=== PATIENT | male | born 1955 | race Caucasian/White ===

== ENCOUNTER 2018-10-18 20:21 | Observation (INO) ==
--- NOTE | 2018-10-18 20:34 | Emergency Department Note ---
Disposition Clinical Impression: Unstable angina Disposition: Admitted As Inpatient Referrals: Ronny Boyer DO [Non-Partnered Physician] - Forms: ED Satisfaction Letter Time of Disposition: 22:40 General Adult HPI - General Stated complaint: Chest Pain Time Seen by Provider: 10/18/18 20:27 Source: patient, family Mode of arrival: private vehicle Limitations: no limitations Nursing Notes Reviewed: Yes Vital Signs Reviewed: Yes - History of Present Illness HPI Narrative: Patient is a 62-year-old male with past medical history including coronary artery disease and MD status post 2 stent placements on aspirin 325 mg, hypertension, hyperlipidemia, asthma, presenting with a chief complaint of chest pain. Patient states he has been having intermittent episodes of left-sided chest pain with exertion and associated with shortness of breath and nausea. The patient states he went to [facility] and had an EKG. He was sent to cardiology, Dr. Post. At that time, he wanted the patient to call or to the emergency department as his blood pressure and heart rate were low. The patient refused. He is scheduled for a coronary catheterization on October 21. The patient states since last night, he is having more frequent episodes of chest pain. He states today since noon, he was walking and exerting himself outside when he developed left-sided chest pain which she describes as pressure and burning sensation that intermittently radiates down his left arm and associated with shortness breath and nausea but no vomiting. Denies abdominal pain, lightheadedness or dizziness. He states usually the chest pain resolves with rest however did not resolve. He states he took 2 nitroglycerin before coming in with some improvement with chest pain however he still has it. - Related Data Home Medications Medication Instructions Recorded Confirmed Aspirin 325 mg PO DAILY 10/18/18 10/18/18 Budesonide/Formoterol 160/4.5 1 puff IH BID 10/18/18 10/18/18 [Symbicort 160/4.5] Fluticasone Propionate Nasal 2 spray IN DAILY PRN 10/18/18 10/18/18 [Flonase] Metoprolol [Lopressor] 50 mg PO BID 10/18/18 10/18/18 Quinapril HCl [Accupril] 5 mg PO DAILY 10/18/18 10/18/18 Simvastatin [Zocor] 40 mg PO HS 10/18/18 10/18/18 Allergies Allergy/AdvReac Type Severity Reaction Status Date / Time No Known Allergies Allergy Verified 10/18/18 21:02 All systems ED: reviewed and negative except as stated. Review of Systems: As Per HPI Constitutional: Denies: fever, chills Cardiovascular: Reports: chest pain. Denies: palpitations Respiratory: Reports: dyspnea. Denies: cough Gastrointestinal: Reports: nausea. Denies: abdominal pain, vomiting, diarrhea Neurological: Denies: weakness, numbness Past Medical History - Past Medical History Attestation: Yes The following information was validated with the patient. Source: patient Medical history: Reports: asthma, coronary artery disease, hyperlipidemia, hypertension, myocardial infarction Surgical history: Reports: angioplasty/stent, cholecystectomy Psychiatric history: Reports: no psych history - Social History Smoking Status: Former smoker Smokeless Tobacco Status: No Alcohol use: Reports: none Drug use: Reports: none Physical Exam - General Limitations: no limitations General appearance: alert, in no apparent distress - Head Head exam: atraumatic, normocephalic - Eye Eye exam: Present: normal appearance, EOMI - ENT ENT exam: normal exam, normal oropharynx - Neck Neck exam: Present: normal inspection, trachea midline - Chest Chest inspection: Present: normal inspection, symmetric chest wall rise - Respiratory Respiratory exam: Present: normal lung sounds bilaterally. Absent: respiratory distress, wheezes - Cardiovascular Cardiovascular exam: Present: regular rate, normal rhythm, normal heart sounds, other (Bilateral radial pulses are equal.) - Abdominal Exam Abdominal exam: Present: soft, Non-Tender. Absent: distention - Extremities Exam Extremities exam: Present: normal capillary refill. Absent: pedal edema, calf tenderness - Neurological Exam Neurological exam: Present: alert, oriented X3 - Psychiatric Psychiatric exam: Present: normal affect, normal mood - Skin Skin exam: Present: warm, dry. Absent: diaphoresis, pallor Course Vital Signs Temperature 99 F 10/18/18 20:37 Pulse Rate 67 10/18/18 20:37 Respiratory Rate 14 10/18/18 20:37 Blood Pressure 123/81 10/18/18 20:37 O2 Sat by Pulse Oximetry 96 10/18/18 20:37 Temperature 99 F 10/18/18 20:37 Pulse Rate 68 10/18/18 20:58 Respiratory Rate 12 10/18/18 20:58 Blood Pressure 109/69 10/18/18 20:58 O2 Sat by Pulse Oximetry 97 10/18/18 20:58 Oxygen Delivery Oxygen Delivery Nasal Cannula Medical Decision Making - [facility] Narrative Medical decision making narrative: Patient has unstable angina. He is scheduled for a coronary catheterization on October [address] Post. He is presenting with constant chest pain that does not resolve with rest and worsens with exertion since noon. He states it did improve with 2 nitroglycerin. He still has some chest pain at this time but it is not as severe. EKG was obtained and shows no acute ischemic changes. We w ill obtain cardiac workup. Anticipate admission. He has already had a 325 mg aspirin today. We will try another nitroglycerin trial. 21:35 Labs reviewed. Troponin negative. Cardiology paged to discuss heparin and brilinta. Lipase is mildly elevated but he has no abdominal pain or vomiting, no history of pancreatitis. 21;40 Discussed with Cardiology, Dr. Eun Prater. Start heparin if we believe this is unstable angina. Do not need to do any brilinta loading. Hospitalist paged for admission. patient re-evaluated and has no sharp chest pains. States it is improved. Complains of mild left sided pressure. 22:[address] Akers,who accepts admission - Medical Records Medical records reviewed: Yes I reviewed the patient's medical records. - Lab Data Lab results reviewed: Yes I reviewed the patient's lab results. Result diagrams: 10/18/18 20:36 10/18/18 20:36 Lab Results 10/18/18 10/18/18 10/18/18 Range/Units 20:36 20:36 20:36 WBC 5.5 (4.3-11.1) K/mcL RBC 4.23 (4.19-5.50) M/mcL Hgb 13.5 (12.9-16.9) g/dL Hct 40.0 (37.5-50.1) % MCV 94.6 (83.0-100.0) fL MCH 31.9 (28.0-33.3) pg MCHC 33.8 (31.6-35.5) g/dL RDW 14.2 (11.5-14.5) % Plt Count 185 (140-400) K/mcL MPV 11.0 (9.4-12.4) fL Immature Gran % 0.2 (0-4) % Seg Neutrophils % 54.0 % Lymphocytes % 32.8 % Monocytes % 7.8 % Eosinophils % 4.7 % Basophils % 0.5 % Neutrophils # 3.0 (1.6-8.9) K/mcL Lymphocytes # 1.8 (0.6-4.6) K/mcL Monocytes # 0.4 (0.0-1.3) K/mcL Eosinophils # 0.3 (0.0-0.6) K/mcL Basophils # 0.0 (0.0-0.2) K/mcL PT 12.1 (9.4-12.1) Seconds INR 1.1 APTT 33.0 (26.0-36.0) Seconds Heparin Anti-Xa, Unfract (0.30-0.70) IU/mL Sodium (136-145) mEq/L Potassium (3.5-5.1) mEq/L Chloride (98-107) mEq/L Carbon Dioxide (23-29) mEq/L BUN (8-23) mg/dL Creatinine (0.70-1.30) mg/dL Est GFR ( Amer) (> 60) Est GFR (Non-Af Amer) (> 60) BUN/Creatinine Ratio (6-26) Glucose (70-105) mg/dL Calculated Osmolality (280-300) Calcium (8.6-10.3) mg/dL Total Bilirubin (0.3-1.0) mg/dL Direct Bilirubin (0.0-0.2) mg/dL Indirect Bilirubin (0.0-1.2) mg/dL AST (13-39) Units/L ALT (7-52) Units/L Alkaline Phosphatase (34-104) Units/L Troponin I (< 0.04) ng/mL B-Natriuretic Peptide 20 (Less than 100) pg/mL Serum Total Protein (6.4-8.9) g/dL Albumin (3.5-5.7) g/dL Globulin (2.4-3.5) g/dL Albumin/Globulin Ratio (1.1-2.2) Lipase (11-82) Units/L 10/18/18 10/18/18 Range/Units 20:36 22:01 WBC (4.3-11.1) K/mcL RBC (4.19-5.50) M/mcL Hgb (12.9-16.9) g/dL Hct (37.5-50.1) % MCV (83.0-100.0) fL MCH (28.0-33.3) pg MCHC (31.6-35.5) g/dL RDW (11.5-14.5) % Plt Count (140-400) K/mcL MPV (9.4-12.4) fL Immature Gran % (0-4) % Seg Neutrophils % % Lymphocytes % % Monocytes % % Eosinophils % % Basophils % % Neutrophils # (1.6-8.9) K/mcL Lymphocytes # (0.6-4.6) K/mcL Monocytes # (0.0-1.3) K/mcL Eosinophils # (0.0-0.6) K/mcL Basophils # (0.0-0.2) K/mcL PT (9.4-12.1) Seconds INR APTT (26.0-36.0) Seconds Heparin Anti-Xa, Unfract 0.01 L (0.30-0.70) IU/mL Sodium 141 (136-145) mEq/L Potassium 3.8 (3.5-5.1) mEq/L Chloride 106 (98-107) mEq/L Carbon Dioxide 24 (23-29) mEq/L BUN 24 H (8-23) mg/dL Creatinine 0.88 (0.70-1.30) mg/dL Est GFR ( Amer) > 60 (> 60) Est GFR (Non-Af Amer) > 60 (> 60) BUN/Creatinine Ratio 27 H (6-26) Glucose 241 H (70-105) mg/dL Calculated Osmolality 304 H (280-300) Calcium 9.0 (8.6-10.3) mg/dL Total Bilirubin 1.2 H (0.3-1.0) mg/dL Direct Bilirubin 0.2 (0.0-0.2) mg/dL Indirect Bilirubin 1.0 (0.0-1.2) mg/dL AST 18 (13-39) Units/L ALT 16 (7-52) Units/L Alkaline Phosphatase 61 (34-104) Units/L Troponin I < 0.03 (< 0.04) ng/mL B-Natriuretic Peptide (Less than 100) pg/mL Serum Total Protein 6.3 L (6.4-8.9) g/dL Albumin 4.2 (3.5-5.7) g/dL Globulin 2.1 L (2.4-3.5) g/dL Albumin/Globulin Ratio 2.0 (1.1-2.2) Lipase 88 H (11-82) Units/L - Radiology Data Radiology results reviewed: Yes I reviewed the patient's radiology results. Chest X-Ray 10/18/18 20:29 IMPRESSION: No acute cardiopulmonary disease. D/ / Chucho Parry MD / Chucho Parry MD Interpreting Provider: Chucho Parry MD - EKG Data EKG #1 EKG attestation: Yes I reviewed and interpreted this EKG. EKG results narrative: EKG obtained at 2024 shows sinus rhythm with heart rate 64, OR interval 177, QRS duration 117, QTC 432, nonspecific intraventricular conduction delay, no ST elevation, no ST depression
[2018-10-18] MEDS: Nitroglycerin 0.4 MG TAB.SUBL SL PRN ×2 (20:54→21:00)
[2018-10-18 21:00] LABS: Basophils % 0.5 %; Eosinophils # 0.3 K/mcL (0.0-0.6); Eosinophils % 4.7 %; Hemoglobin 13.5 g/dL (12.9-16.9); Immature Granulocytes % 0.2 % (0-4); Lymphocytes # 1.8 K/mcL (0.6-4.6); Lymphocytes % 32.8 %; Mean Corpuscular HGB Conc 33.8 g/dL (31.6-35.5); Mean Corpuscular Hemoglobin 31.9 pg (28.0-33.3); Mean Corpuscular Volume 94.6 fL (83.0-100.0); Monocytes # 0.4 K/mcL (0.0-1.3); Monocytes % 7.8 %; Platelet Count 185 K/mcL (140-400); Red Blood Count 4.23 M/mcL (4.19-5.50); Red Cell Distribution Width 14.2 % (11.5-14.5); White Blood Count 5.5 K/mcL (4.3-11.1)
[2018-10-18 21:07] LABS: INR 1.1; Prothrombin Time 12.1 Seconds (9.4-12.1)
[2018-10-18 21:25] LABS: Alanine Aminotransferase 16 Units/L (7-52); Albumin 4.2 g/dL (3.5-5.7); Alkaline Phosphatase 61 Units/L (34-104); Aspartate Amino Transferase 18 Units/L (13-39); BUN/Creatinine Ratio 27 (6-26); Bilirubin,Direct 0.2 mg/dL (0.0-0.2); Bilirubin,Total 1.2 mg/dL (0.3-1.0); Blood Urea Nitrogen 24 mg/dL (8-23); Carbon Dioxide 24 mEq/L (23-29); Chloride 106 mEq/L (98-107); Globulin 2.1 g/dL (2.4-3.5); Glucose 241 mg/dL (70-105); Lipase 88 Units/L (11-82); Osmolality,Calculated 304 (280-300); Potassium 3.8 mEq/L (3.5-5.1); Sodium 141 mEq/L (136-145); Total Protein 6.3 g/dL (6.4-8.9); Troponin I < 0.03 ng/mL (< 0.04); eGFR For African Americans > 60 (> 60); eGFR For Non-African Americans > 60 (> 60)
[2018-10-18] MEDS ORDERED: *HR* Heparin 5,000 UNIT/ML VIAL IVP PRN ×2 (21:52)
[2018-10-18] MEDS ORDERED: *HR* Heparin 5,000 UNIT/ML VIAL IVP ONE (21:52)
--- NOTE | 2018-10-18 22:14 | Emergency Department Note ---
Disposition Clinical Impression: Unstable angina Disposition: Admitted As Inpatient Condition: Good Referrals: Ronny Boyer DO [Primary Care Provider] - Forms: ED Satisfaction Letter Time of Disposition: 22:14 General Adult HPI - General Chief complaint: ED Chest Pain Stated complaint: Chest Pain Time Seen by Provider: 10/18/18 20:27 Source: patient, family Mode of arrival: private vehicle Limitations: no limitations - History of Present Illness Pain Scale: 3 - Related Data Home Medications Medication Instructions Recorded Confirmed Aspirin 325 mg PO DAILY 10/18/18 10/18/18 Budesonide/Formoterol 160/4.5 1 puff IH BID 10/18/18 10/18/18 [Symbicort 160/4.5] Fluticasone Propionate Nasal 2 spray IN DAILY PRN 10/18/18 10/18/18 [Flonase] Metoprolol [Lopressor] 50 mg PO BID 10/18/18 10/18/18 Quinapril HCl [Accupril] 5 mg PO DAILY 10/18/18 10/18/18 Simvastatin [Zocor] 40 mg PO HS 10/18/18 10/18/18 Allergies Allergy/AdvReac Type Severity Reaction Status Date / Time No Known Allergies Allergy Verified 10/18/18 21:02 Constitutional: Denies: fever, chills Cardiovascular: Reports: chest pain. Denies: palpitations Respiratory: Reports: dyspnea. Denies: cough Gastrointestinal: Reports: nausea. Denies: abdominal pain, vomiting, diarrhea Neurological: Denies: weakness, numbness Past Medical History - Past Medical History Medical history: Reports: asthma, coronary artery disease, hyperlipidemia, hypertension, myocardial infarction Surgical history: Reports: angioplasty/stent, cholecystectomy Psychiatric history: Reports: no psych history - Social History Smoking Status: Former smoker Smokeless Tobacco Status: No Alcohol use: Reports: none Drug use: Reports: none Physical Exam - General Limitations: no limitations General appearance: alert, in no apparent distress Course Vital Signs Temperature 99 F 10/18/18 20:37 Pulse Rate 67 10/18/18 20:37 Respiratory Rate 14 10/18/18 20:37 Blood Pressure 123/81 10/18/18 20:37 O2 Sat by Pulse Oximetry 96 10/18/18 20:37 Temperature 99 F 10/18/18 20:37 Pulse Rate 68 10/18/18 20:58 Respiratory Rate 12 10/18/18 20:58 Blood Pressure 109/69 10/18/18 20:58 O2 Sat by Pulse Oximetry 97 10/18/18 20:58 Oxygen Delivery Oxygen Delivery Nasal Cannula Medical Decision Making - Lab Data Result diagrams: 10/18/18 20:36 10/18/18 20:36 Lab Results 10/18/18 10/18/18 10/18/18 Range/Units 20:36 20:36 20:36 WBC 5.5 (4.3-11.1) K/mcL RBC 4.23 (4.19-5.50) M/mcL Hgb 13.5 (12.9-16.9) g/dL Hct 40.0 (37.5-50.1) % MCV 94.6 (83.0-100.0) fL MCH 31.9 (28.0-33.3) pg MCHC 33.8 (31.6-35.5) g/dL RDW 14.2 (11.5-14.5) % Plt Count 185 (140-400) K/mcL MPV 11.0 (9.4-12.4) fL Immature Gran % 0.2 (0-4) % Seg Neutrophils % 54.0 % Lymphocytes % 32.8 % Monocytes % 7.8 % Eosinophils % 4.7 % Basophils % 0.5 % Neutrophils # 3.0 (1.6-8.9) K/mcL Lymphocytes # 1.8 (0.6-4.6) K/mcL Monocytes # 0.4 (0.0-1.3) K/mcL Eosinophils # 0.3 (0.0-0.6) K/mcL Basophils # 0.0 (0.0-0.2) K/mcL PT 12.1 (9.4-12.1) Seconds INR 1.1 APTT 33.0 (26.0-36.0) Seconds Sodium (136-145) mEq/L Potassium (3.5-5.1) mEq/L Chloride (98-107) mEq/L Carbon Dioxide (23-29) mEq/L BUN (8-23) mg/dL Creatinine (0.70-1.30) mg/dL Est GFR ( Amer) (> 60) Est GFR (Non-Af Amer) (> 60) BUN/Creatinine Ratio (6-26) Glucose (70-105) mg/dL Calculated Osmolality (280-300) Calcium (8.6-10.3) mg/dL Total Bilirubin (0.3-1.0) mg/dL Direct Bilirubin (0.0-0.2) mg/dL Indirect Bilirubin (0.0-1.2) mg/dL AST (13-39) Units/L ALT (7-52) Units/L Alkaline Phosphatase (34-104) Units/L Troponin I (< 0.04) ng/mL B-Natriuretic Peptide 20 (Less than 100) pg/mL Serum Total Protein (6.4-8.9) g/dL Albumin (3.5-5.7) g/dL Globulin (2.4-3.5) g/dL Albumin/Globulin Ratio (1.1-2.2) Lipase (11-82) Units/L 10/18/18 Range/Units 20:36 WBC (4.3-11.1) K/mcL RBC (4.19-5.50) M/mcL Hgb (12.9-16.9) g/dL Hct (37.5-50.1) % MCV (83.0-100.0) fL MCH (28.0-33.3) pg MCHC (31.6-35.5) g/dL RDW (11.5-14.5) % Plt Count (140-400) K/mcL MPV (9.4-12.4) fL Immature Gran % (0-4) % Seg Neutrophils % % Lymphocytes % % Monocytes % % Eosinophils % % Basophils % % Neutrophils # (1.6-8.9) K/mcL Lymphocytes # (0.6-4.6) K/mcL Monocytes # (0.0-1.3) K/mcL Eosinophils # (0.0-0.6) K/mcL Basophils # (0.0-0.2) K/mcL PT (9.4-12.1) Seconds INR APTT (26.0-36.0) Seconds Sodium 141 (136-145) mEq/L Potassium 3.8 (3.5-5.1) mEq/L Chloride 106 (98-107) mEq/L Carbon Dioxide 24 (23-29) mEq/L BUN 24 H (8-23) mg/dL Creatinine 0.88 (0.70-1.30) mg/dL Est GFR ( Amer) > 60 (> 60) Est GFR (Non-Af Amer) > 60 (> 60) BUN/Creatinine Ratio 27 H (6-26) Glucose 241 H (70-105) mg/dL Calculated Osmolality 304 H (280-300) Calcium 9.0 (8.6-10.3) mg/dL Total Bilirubin 1.2 H (0.3-1.0) mg/dL Direct Bilirubin 0.2 (0.0-0.2) mg/dL Indirect Bilirubin 1.0 (0.0-1.2) mg/dL AST 18 (13-39) Units/L ALT 16 (7-52) Units/L Alkaline Phosphatase 61 (34-104) Units/L Troponin I < 0.03 (< 0.04) ng/mL B-Natriuretic Peptide (Less than 100) pg/mL Serum Total Protein 6.3 L (6.4-8.9) g/dL Albumin 4.2 (3.5-5.7) g/dL Globulin 2.1 L (2.4-3.5) g/dL Albumin/Globulin Ratio 2.0 (1.1-2.2) Lipase 88 H (11-82) Units/L Attestation Statement - Attestation Attestation: I reviewed the residents documentation and agree with the residents assessment and plan of care. I have personally had face to face time with the patient. (Brief History, Brief Exam, and MDM) I personally supervised and was present for the jimenez/critical portions of the following procedures completed by the resident: EKG 62 year old male presents to the eD with complaints of chest pain and is scheduled to have LHC on saturday with dr. Post. He otherwise has a history of 2 cardiac stents in the past and is experiencing exertional dysone after doing some light house work [employer]. amirah also was at rest a few days ago and the chest pressure woke him from sleep. Lily has a nonspecific ST-T wave changes on EKG without any acute ischemic changes in addition to a negative troponin. We dicussed case with Dr. Eun Rivero who will see patient in consult for cards. Heparin started, chest pain free. Admit to medicine
--- NOTE | 2018-10-18 22:37 | Internal Med History&Physical ---
Date of Encounter: 10/18/18 Time of Encounter: 22:00 Internal Medicine - H&P: HPI Chief complaint: chest pain History of present illness: Mr. Ross is a 62 year old male with past medical history of asthma, coronary artery disease, hyperlipidemia, hypertension, myocardial infarction who resented to the ER with a complaint of intermittent left-sided chest pain, pressure like and character associated with nausea and vomiting without diaphoresis. The patient has extensive cardiac history status post stent placement and on aspirin. The patient was supposed to be scheduled for cardiac catheterization on October 21 however due to the increase of frequency of chest pain episode he decided to seek medical attention. The patient was evaluated by the ER staff and EKG revealed no significant ST-T wave changes cardiac enzymes including troponin were negative. Cardiology was consulted by the ER and they came to the conclusion that patient most likely with unstable angina they advise not to load the patient with brilinta and start patient on heparin drip and they will see the patient in consult the patient was admitted for further evaluation and management. Past Med Surg Social Fam HX - Past Medical History Medical history: asthma, coronary artery disease, hyperlipidemia, hypertension, myocardial infarction Additional medical history: heart stents x2 2009 Psychiatric history: no psych history - Past Surgical History Surgical History: angioplasty/stent, cholecystectomy - Social History Smoking Status: Former smoker Smokeless Tobacco Status: No Alcohol use: none Drug use: none - Family History Father Living Status: Cause of : cerebral hemorrhage Internal Medicine - H&P: Meds Aspirin 325 mg PO DAILY 10/18/18 [History] Budesonide/Formoterol 160/4.5 [Symbicort 160/4.5] 1 puff IH BID 10/18/18 [History] Fluticasone Propionate Nasal [Flonase] 2 spray IN DAILY PRN 10/18/18 [History] Quinapril HCl [Accupril] 5 mg PO DAILY 10/18/18 [History] Simvastatin [Zocor] 40 mg PO HS 10/18/18 [History] Isosorbide MONOnitrate (24 HR) [Imdur] 30 mg PO DAILY #30 tab.er.24h 10/20/18 [Rx] Metoprolol [Lopressor] 25 mg PO BID 30 Days #60 tablet 10/20/18 [Rx] Allergy/AdvReac Type Severity Reaction Status Date / Time No Known Allergies Allergy Verified 10/18/18 21:02 All Systems PM: A 10-system review of systems was performed and is negative for pertinent findings except as documented above in the HPI. - Constitutional Vitals: Temp Pulse Resp BP Pulse Ox 99 F 68 12 109/69 97 10/18/18 20:37 10/18/18 20:58 10/18/18 20:58 10/18/18 20:58 10/18/18 20:58 General appearance: Present: A&O X 3 Exam: ` - Head Head exam: Present: atraumatic, normocephalic - Neck Neck exam general surgery: Present: supple, trachea midline. Absent: lymphadenopathy - Respiratory Respiratory exam: Present: CTAB. Absent: accessory muscle use, rales, rhonchi, wheezes - Cardiovascular Cardiovascular exam: Present: RRR, +S1, +S2. Absent: diastolic murmur, gallop, rubs, systolic murmur - GI/Abdominal GI/Abdominal exam: Present: normal bowel sounds, soft, no peritoneal signs. Absent: distended, tenderness - Extremities Exam Extremities exam: Present: warm, radial pulses palpable and symmetrical. Absent: calf tenderness, cyanotic, pedal edema Internal Med - H&P Results - Labs CBC & Chem 7: 10/20/18 04:27 10/20/18 04:27 Labs: Short CBC 10/18/18 Range/Units 20:36 WBC 5.5 (4.3-11.1) K/mcL Hgb 13.5 (12.9-16.9) g/dL Hct 40.0 (37.5-50.1) % Plt Count 185 (140-400) K/mcL Neutrophils # 3.0 (1.6-8.9) K/mcL BMP 10/18/18 20:36 Sodium 141 Potassium 3.8 Chloride 106 Carbon Dioxide 24 BUN 24 H Creatinine 0.88 Glucose 241 H Calcium 9.0 Cardiac Enzymes 10/18/18 Range/Units 20:36 Troponin I < 0.03 (< 0.04) ng/mL Liver Function 10/18/18 Range/Units 20:36 Total Bilirubin 1.2 H (0.3-1.0) mg/dL Direct Bilirubin 0.2 (0.0-0.2) mg/dL AST 18 (13-39) Units/L ALT 16 (7-52) Units/L Alkaline Phosphatase 61 (34-104) Units/L Albumin 4.2 (3.5-5.7) g/dL - Impressions ITS Impressions Chest X-Ray 10/18/18 20:29 IMPRESSION: No acute cardiopulmonary disease. D/ / Chucho Parry MD / Chucho Parry MD Interpreting Provider: Chucho Parry MD - Assessment and Plan (1) Unstable angina Status: Acute Assessment and plan: The patient was supposed to be scheduled for cardiac catheterization on October 21 however due to the increase of frequency of chest pain episode he decided to seek medical attention. The patient was evaluated by the ER staff and EKG revealed no significant ST-T wave changes cardiac enzymes including t roponin were negative. Cardiology was consulted by the ER and they came to the conclusion that patient most likely with unstable angina they advise not to load the patient with brilinta and start patient on heparin drip and they will see the patient in consult. We will place the patient on telemetry, continue heparin drip, and tach cardiac enzymes. (2) Hypertension Status: Chronic Assessment and plan: We will continue home medication and adjust regimen as indicated Qualifiers: Hypertension type: essential hypertension Qualified Code(s): I10 - Essential (primary) hypertension (3) Hyperlipidemia Status: Chronic Assessment and plan: We will obtain FLP in Am Qualifiers: Hyperlipidemia type: unspecified Qualified Code(s): E78.5 - Hyperlipidemia, unspecified (4) Coronary artery disease Status: Chronic Assessment and plan: We will continue home medication, cardiology was consulted and they will see the patient in a.m. Qualifiers: Coronary Disease-Associated Artery/Lesion type: [place] artery [place] vs. transplanted heart: [place] heart Associated angina: with unstable angina Qualified Code(s): I25.110 - Atherosclerotic heart disease of [place] coronary artery with unstable angina pectoris - Time Spent With Patient Total time spent is greater than 50% in coordination of care (as documented) at patient's floor/unit and/or counseling patient:
[2018-10-18] MEDS: Heparin 25,000 UNIT/250 ML D5W 25,000 UNIT/250 ML IV.SOLN IVC SCH (22:44)
[2018-10-19] MEDS ORDERED: Naloxone 0.4 MG/ML INJ IVP PRN (00:31)
[2018-10-19] MEDS ORDERED: Ondansetron 4 MG/2 ML VIAL IVP PRN (00:31)
[2018-10-19 01:25] LABS: Basophils % 0.6 %; Eosinophils # 0.2 K/mcL (0.0-0.6); Eosinophils % 4.4 %; Hematocrit 38.4 % (37.5-50.1); Hemoglobin 12.4 g/dL (12.9-16.9); Immature Granulocytes % 0.2 % (0-4); Lymphocytes # 1.9 K/mcL (0.6-4.6); Lymphocytes % 38.4 %; Mean Corpuscular HGB Conc 32.3 g/dL (31.6-35.5); Mean Corpuscular Hemoglobin 31.2 pg (28.0-33.3); Mean Corpuscular Volume 96.5 fL (83.0-100.0); Mean Platelet Volume 10.9 fL (9.4-12.4); Monocytes # 0.5 K/mcL (0.0-1.3); Monocytes % 10.4 %; Neutrophils # 2.3 K/mcL (1.6-8.9); Platelet Count 149 K/mcL (140-400); Red Blood Count 3.98 M/mcL (4.19-5.50); Red Cell Distribution Width 14.3 % (11.5-14.5)
[2018-10-19 01:39] LABS: Alanine Aminotransferase 16 Units/L (7-52); Albumin 3.9 g/dL (3.5-5.7); Albumin/Globulin Ratio 1.8 (1.1-2.2); Alkaline Phosphatase 57 Units/L (34-104); Aspartate Amino Transferase 15 Units/L (13-39); BUN/Creatinine Ratio 26 (6-26); Bilirubin,Total 1.1 mg/dL (0.3-1.0); Blood Urea Nitrogen 22 mg/dL (8-23); Calcium 9.1 mg/dL (8.6-10.3); Carbon Dioxide 27 mEq/L (23-29); Chloride 110 mEq/L (98-107); Chol/HDL Ratio 3.8 (0-4.9); Cholesterol 118 mg/dL (< 200); Globulin 2.2 g/dL (2.4-3.5); Glucose 151 mg/dL (70-105); HDL Cholesterol 31 mg/dL (40-59); LDL Cholesterol,Calculated 67 mg/dL (0-99); Magnesium 2.1 mg/dL (1.6-2.6); Osmolality,Calculated 300 (280-300); Phosphorous 3.4 mg/dL (2.7-4.5); Potassium 4.3 mEq/L (3.5-5.1); Sodium 142 mEq/L (136-145); Total Protein 6.1 g/dL (6.4-8.9); Triglycerides 101 mg/dL (< 150); eGFR For African Americans > 60 (> 60); eGFR For Non-African Americans > 60 (> 60)
[2018-10-19 01:52] LABS: INR 1.1; Prothrombin Time 12.1 Seconds (9.4-12.1)
[2018-10-19 02:01] LABS: Activated Partial Thrombo Time 107.6 Seconds (26.0-36.0)
[2018-10-19] MEDS: Budesonide/Formoterol 160/4.5 1 PUFF INH IH SCH ×2 (08:01→20:37)
[2018-10-19] MEDS: Aspirin 325 MG TABLET PO SCH (08:53)
[2018-10-19] MEDS ORDERED: Nitroglycerin 25 MG/250 ML INFUS..BTL IVC SCH (09:30)
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
--- NOTE | 2018-10-19 12:44 | Electrocardiograph Report ---
[place] [id number] Test Date: 2018-10-18 Pat Name: Topher Ross Department: [id number] Room: 3B24 Gender: M Insurance Counselor: : 1955 Requested By: Erin Elam Order Number: [id number] Reading MD: Audra Prater Measurements Intervals [place] Rate: 64 P: 55 [place]: 177 QRS: -9 QRSD: 117 T: 63 QT: 418 QTc: 432 Interpretive Statements Sinus rhythm Nonspecific intraventricular conduction delay Low voltage, extremity and precordial leads Electronically Signed On 10-19-2018 12:42:44 EDT by Audra Prater
--- NOTE | 2018-10-19 14:50 | Event Note ---
Date of Encounter: 10/19/18 Time of Encounter: 14:48 Patient was seen and examined by hospitalist services earlier this morning. Patient continues to express intermittent chest pain particularly on exertion. Patient is currently on heparin drip and nitroglycerin drip will be added. Patient's been evaluated by cardiology and he will undergo LHC in the morning patient verbalizes understanding
[2018-10-19] MEDS ORDERED: 0.9 % Sodium Chloride 1,000 ML ONE (14:58)
[2018-10-19] MEDS ORDERED: 0.9 % Sodium Chloride 1,000 ML IVC SCH (15:00)
[2018-10-19] MEDS: Heparin 25,000 UNIT/250 ML D5W 25,000 UNIT/250 ML IV.SOLN IVC SCH (23:05)
[2018-10-20 05:09] LABS: Basophils % 0.6 %; Eosinophils # 0.3 K/mcL (0.0-0.6); Eosinophils % 5.4 %; Hematocrit 37.6 % (37.5-50.1); Hemoglobin 12.5 g/dL (12.9-16.9); Immature Granulocytes % 0.6 % (0-4); Lymphocytes # 1.7 K/mcL (0.6-4.6); Lymphocytes % 31.7 %; Mean Corpuscular HGB Conc 33.2 g/dL (31.6-35.5); Mean Corpuscular Hemoglobin 31.5 pg (28.0-33.3); Mean Corpuscular Volume 94.7 fL (83.0-100.0); Mean Platelet Volume 11.2 fL (9.4-12.4); Monocytes # 0.6 K/mcL (0.0-1.3); Monocytes % 11.3 %; Neutrophils # 2.6 K/mcL (1.6-8.9); Nucleated Red Blood Cells 0.4 /100 WBC (0); Platelet Count 157 K/mcL (140-400); Red Blood Count 3.97 M/mcL (4.19-5.50); Red Cell Distribution Width 14.1 % (11.5-14.5); Segmented Neutrophils % 50.4 %; White Blood Count 5.2 K/mcL (4.3-11.1)
[2018-10-20 05:31] LABS: BUN/Creatinine Ratio 25 (6-26); Blood Urea Nitrogen 22 mg/dL (8-23); Calcium 8.9 mg/dL (8.6-10.3); Carbon Dioxide 27 mEq/L (23-29); Chloride 105 mEq/L (98-107); Cholesterol 125 mg/dL (< 200); Glucose 125 mg/dL (70-105); HDL Cholesterol 31 mg/dL (40-59); LDL Cholesterol,Calculated 38 mg/dL (0-99); Osmolality,Calculated 297 (280-300); Sodium 141 mEq/L (136-145); Triglycerides 278 mg/dL (< 150); eGFR For African Americans > 60 (> 60); eGFR For Non-African Americans > 60 (> 60)
[2018-10-20] MEDS ORDERED: 0.9 % Sodium Chloride 1,000 ML IVC SCH (07:00)
[2018-10-20] MEDS: Budesonide/Formoterol 160/4.5 1 PUFF INH IH SCH (07:52)
[2018-10-20] MEDS: Aspirin 325 MG TABLET PO SCH (08:01)
[2018-10-20] MEDS ORDERED: *HR* FentaNYL (PF) 100 MCG/2 ML VIAL ONE (08:54)
[2018-10-20] MEDS ORDERED: *HR* Midazolam HCl 2 MG/2 ML VIAL ONE (08:54)
[2018-10-20] MEDS ORDERED: 0.9 % Sodium Chloride 1,000 ML ONE (08:54)
[2018-10-20] MEDS ORDERED: Nitroglycerin 1,000 MCG/10 ML VIAL IV ONE (08:55)
[2018-10-20] MEDS ORDERED: Heparin 1,000 UNITS/500 mL 500 ML ONE (08:55)
[2018-10-20] MEDS ORDERED: *HR* Heparin 10,000 UNIT/10 ML VIAL ONE (08:55)
[2018-10-20] MEDS ORDERED: Isovue-300 200 mL Infus..BTL ONE (08:56)
--- NOTE | 2018-10-20 09:42 | Pre-Sedation Evaluation ---
Pre-sedation evaluation - Pre-sedation checklist Date of procedure: 10/20/18 Procedure: C Recent Vitals: Last Vital Signs Temp 98.1 F 10/20/18 06:49 Pulse 61 10/20/18 06:49 Resp 16 10/20/18 07:53 BP 113/76 10/20/18 06:49 Pulse Ox 95 10/20/18 07:53 Previous reaction to sedatives/anesthetics: No Dietary Status: NPO after Midnight Dentition: dentures removed ASA Classification *see protocol: CLASS II-Mild systemic disease Cardiac Registry (Cardio Only) - Functional Capacity Functional Capacity: >=4 METS with symptoms - Clincal Frailty Scale Clinical Frailty Scale: Managing Well
[2018-10-20] MEDS ORDERED: Iopamidol 125 ML INFUS..BTL ONE (09:46)
--- NOTE | 2018-10-20 10:11 | Event Note ---
Date of Encounter: 10/20/18 Time of Encounter: 10:00 - Cardiology Event Note Prelim [facility] findings with Dr. Nair--non-obstructive CAD with patent stents. Will decrease BB due to c/o fatigue. Add imdur. Recommend outpatient sleep study to evaluate with JOSE. No further inpatient recommendations. Cardiology will sign-off.
--- NOTE | 2018-10-20 10:17 | Invasive Diagnostic Lab Proc ---
Name: Topher Ross Date of Study: 10/20/2018 Date: 1955 Ht: 66.1in Medical Record#: [id number] Age: 62 Wt: 211.64lb Gender: Male BSA: 2.05 Order #: [id number] BMI: 34.01 Physicians Procedure Physician: Balaji Nair MD Referring MD: Referring MD: Staff Name Position Time In Bertrand Cabral RN Monitor 09:29 AM Miquel Parekh RN [employer] Crew Leader 09:30 AM Audra Morin RT (R) Scrub 09:30 AM Indications Indication Worsening Angina Procedures Performed Procedure L HRT ARTERY/VENTRICLE ANGIO Pre-Procedure Checklist Informed consent is complete signed and on chart. H&P is on chart. ID band is on and ID verified with patient. Patient NPO for procedure The procedure was described for the patient and questions were answered. ECG is on chart. Plan of Care Patient will tolerate the procedure without complications. Adequate level of comfort will be maintained. Hemodynamics will remain stable Patient will recover from procedure without complications. Respiratory function will be maintained. Cardiac rhythm will remain stable. Patient temperature will be maintained. Patient and/or family have verbalized understanding of the procedure. Patient Education Chief Complaint/Reason for Test: Cardiac Cath Developmental Category: Adult (18-64 years) Developmentally Appropriate for Age: Yes Learning Barriers: None Education Needs: Procedure Education Method: Verbal Information Taught: Cardiac Cath Educational Evaluation: Able to repeat information Intravenous Access Time IV Size Location DC'd Fluid/Drip Rate Units RN 20g 1 /4" Patent On Arrival 0.9NaCl ml/hr Allergies No Known Allergies Vital Signs Time BP (mmHg) HR (bpm) O2 Sat. RR (bpm) LOC 09:41 AM 132 / 77 56 97 % 31 09:46 AM 130 / 65 57 98 % 13 09:51 AM 137 / 82 67 100 % 21 09:56 AM 127 / 77 68 99 % 12 Procedural Medications Time Medication Dose Units Method Given By 09:36 AM Oxygen 2 L/min nasal cannula Miquel Parekh RN 09:40 AM Versed 1 mg Intravenous Miquel Parekh RN 09:40 AM Fentanyl 50 mcg Intravenous Miuqel Parekh RN 09:46 AM Lidocaine 2% 20 ml Subcutaneous Balaji Nair MD 09:52 AM Nitroglycerin 150 mcg Intracoronary Balaji Nair MD ASA Classification: CLASS II- Mild systemic disease (i.e. well-controlled diabetes, hypertension, asthma, cigarette smoking) Jose Score Preprocedure Postprocedure Activity 2- Moves 4 extremities sustained head lift Activity 2- Moves 4 extremities sustained head lift Circulation 2- SBP +/= 20 points of pre-anesthetic level Circulation 2- SBP +/= 20 points of pre-anesthetic level Consciousness 2- Awake and alert oriented x 3 Consciousness 2- Awake and alert oriented x 3 O2 Saturation 2- Able to maintain O2 satruation of 92% on room air O2 Saturation 2- Able to maintain O2 satruation of 92% on room air Respiratory 2- Able to deep breathe and cough well Respiratory 2- Able to deep breathe and cough well Total Score 10 Total Score 10 Contrast Agent: Isovue Diagnostic Contrast: 60 ml Total Contrast: 60 ml Fluoro Dose: 24 mGy Procedure Log Time Note Enter By 09:29 AM Pt arrived to physical laboratory assistant 2 at 09:28 oparker 09:30 AM Bertrand Cabral RN Position: Monitor Time in: :29 oparker 09:30 AM Miquel Parekh RN Position: [employer] Crew Leader Time in: 09:30 oparker 09:30 AM Audra Morin (R) Position: Scrub Time in: 09:30 oparker 09:30 AM Patient charges- Angio tray pack, Navilyst 3mm J, Pulse Oximetry and ACIST tubing and transducer oparker 09:32 AM Time: 09:32 Patient comfortable and pain free: Yes oparker 09:33 AM CathStat 09:35 AM Physician arrived 09:35 oparker 09:35 AM Meet and delfina completed oparker 09:35 AM Sign in performed according to hospital policy. Informed consent was obtained. oparker 09:36 AM Recorded ECG: HR=66 Condition=Condition 1 09:36 AM Vitals capture started with the following parameters, Patient=Adult, Interval=5 min, Initial Iddkycao=042 mmHg, Deflation Rate=3 mmHg, Cuff placed on Right Arm 09:36 AM Procedure start 09:36 oparker 09:37 AM Time: 09:36 Oxygen on at 2 L/min per nasal cannula by Miquel Parekh RN oparker 09:38 AM Hair removed from procedure site in procedure lab using clippers. Bilateral groin prepped with Chloraprep by Miquel Parekh RN, then patient was draped. Skin intact. oparker 09:39 AM Vitals capture stopped. 09:40 AM Vitals capture started with the following parameters, Patient=Adult, Interval=5 min, Initial Zczqhvkh=719 mmHg, Deflation Rate=3 mmHg, Cuff placed on Right Arm 09:40 AM Time: 09:40 Versed 1 mg Intravenous Given by Miquel Parekh RN oparker 09:40 AM Time: 09:40 Fentanyl 50 mcg Intravenous Given by Miquel Parekh RN oparker 09:41 AM HR=56 bpm, OKHJ=796/77 mmhg, SpO2=97.0 %, Resp=31 B/min 09:42 AM Recorded ECG: HR=60 Condition=Condition 1 09:43 AM Time out was performed according to hospital policy. Conscious sedation and anesthesia was achieved (see medication log with in this report above) oparker 09:44 AM ASA Class CLASS II- Mild systemic disease (i.e. well-controlled diabetes, hypertension, asthma, cigarette smoking) oparker 09:45 AM Pressure channel 1 zeroed. 09:45 AM Pressure channel 1 zero failed. 09:46 AM Pressure channel 1 zeroed. 09:46 AM Time: 09:46 20 ml Lidocaine 2% to right groin Subcutaneous Given by Balaji Nair MD oparker 09:46 AM HR=57 bpm, NRIR=474/65 mmhg, SpO2=98.0 %, Resp=13 B/min 09:47 AM Time: 09:32 Patient comfortable and pain free: Yes oparker 09:47 AM Micro-Introducer Kit utilized for sheath placement oparker 09:48 AM Access obtained by percutaneous puncture. 6Fr 10cm Terumo [place] sheath placed in right Femoral artery. [id number] oparker 09:48 AM 0.035 145cm Navilyst 3mmJ wire [id number] oparker 09:48 AM Recorded Pressure: Ao, HR=64, Condition=Condition 1 (Aorta) Ao 127/77/99 09:48 AM 5Fr FR 4 catheter inserted over the wire DNC oparker 09:49 AM RCA angiography performed in multiple views. oparker 09:50 AM Catheter removed oparker 09:51 AM Recorded Pressure: Ao, HR=68, Condition=Condition 1 (Aorta) Ao 113/77/94 09:51 AM 5Fr FL 4 catheter inserted over the wire DNC oparker 09:51 AM HR=67 bpm, HUYE=344/82 mmhg, GvT1=080.0 %, Resp=21 B/min 09:52 AM Time: 09:52 Nitroglycerin 150 mcg Intracoronary Given by Balaji Nair MD oparker 09:52 AM Recorded Pressure: Ao, HR=73, Condition=Condition 1 (Aorta) Ao 95/67/81 09:53 AM Catheter removed oparker 09:53 AM 5Fr Pigtail catheter inserted over the wire DNC oparker 09:54 AM Recorded Pressure: LV, HR=70, Condition=Condition 1 (Left Ventricle) LV 111/11/13 09:54 AM Recorded Pressure: LV, Ao, HR=81, Condition=Condition 1 (Left Ventricle) LV 115/32/14, (Aorta) Ao 23/-20/2 09:55 AM Procedure completed at 09:55 10/20/2018 oparker 09:55 AM Did you address LUC flow and Dominance? YesCoronary Dominance: right oparker 09:56 AM Sign out completed: Radiation Dose 175.62 mGy, 24.3 Gy/cm2 Fluoro Time: 1.4 Isovue 370 - 200ml contrast 60 ml given by Balaji Nair MD. Complications: None. The patient was discharged out of the microbiology lab technician in stable condition. Sedation minutes 15. Cardiac Rehab Consult needed: No. Confirmed administered medications: Yes oparker 09:56 AM Isovue 370 - 200ml,1 Bottle(s) used. oparker 09:56 AM HR=68 bpm, XXTJ=239/77 mmhg, SpO2=99.0 %, Resp=12 B/min 09:56 AM Arterial sheath pulled, Mynx closure device used and was Successful [id number] S/N. oparker 09:56 AM Estimated Blood Loss: less than 20cc oparker 09:56 AM Post ECG NSR oparker 09:56 AM Post Blood Pressure 127/77 oparker 09:56 AM 09:56 Post Pulses Bilateral DP 1+ oparker 09:57 AM Information taught Cardiac Cath and Mynx oparker 09:57 AM Education needs Procedure, Plan of Care, and Disease Process oparker 09:57 AM Learning barriers :None oparker 09:57 AM Education Methods Verbal oparker 09:57 AM Education evaluation Able to repeat information oparker 10:02 AM Lesion found in Mid LAD. Pre Stenosis: 15 Pre LUC Flow: oparker 10:02 AM Mid/Distal Left Anterior Descending Coronary Artery and diagonal branches with 15% stenosis. If graft is supplying this area, 0 % stenosis oparker 10:03 AM Site status No bleeding/ No Hematoma - Rt Groin as reported by Audra Morin RT (R) at 10:03 oparker 10:03 AM Opsite applied oparker 10:06 AM Report given to Debra BLUNT Pt taken to 3B Room #24. 10:06 oparker 10:06 AM Patient out of room: 10:06 oparker 10:06 AM Family placed in consult room. oparker Complications Complication None Hemodynamics Pressures Site Systolic/A Wave Diastolic/V Wave Mean AO 127 77 99 AO 113 77 94 AO 95 67 81 LV 111 11 13 LV 115 32 14 AO 23 -20 2 Post Procedure Information Blood Pressure: 127/77 mmHg Rhythm: NSR Closure Device Time Device Success/Fail 10/20/2018 9:58:00 AM MynxGrip Successful Site Checks Time Location Status Staff Sheath In? Note 10:03 AM Rt Groin No bleeding/ No Hematoma Audra Morin RT (R) Pulses Time Site Pre-Procedure Post-Procedure Note Bilateral DP & PT 2+ Bilateral radial 2+ 9:56:00 AM Bilateral DP 1+ Updated by Bertrand Cabral RN on 10/20/2018 10:10:53 AM electronically signed on 10/20/2018 10:11:44 AM with status of Final
--- NOTE | 2018-10-20 10:50 | Discharge Summary ---
- NOTES TO OUTPATIENT PROVIDER Notes to Outpatient Provider: Presented with unstable angina was seen by cardiology and underwent cardiac catheter which did show nonobstructive CAD with patent stents-cardiology decreasing beta reinaldo and adding Imdur will benefit from outpatient sleep study to evaluate for JOSE Orders not resulted at time of discharge: Pending orders 10/19/18 04:00 Urinalysis reflex Microscopic [URIN] AM 0400 Date of Encounter: 10/20/18 Time of Encounter: 10:41 - Discharge Diagnosis (1) Unstable angina Priority: Primary Status: Acute (2) Hypertension Priority: Secondary Status: Chronic Qualifiers: Hypertension type: essential hypertension Qualified Code(s): I10 - Essential (primary) hypertension (3) Hyperlipidemia Priority: Secondary Status: Chronic Qualifiers: Hyperlipidemia type: unspecified Qualified Code(s): E78.5 - Hyperlipidemia, unspecified (4) Coronary artery disease Priority: Secondary Status: Chronic Qualifiers: Coronary Disease-Associated Artery/Lesion type: [place] artery [place] vs. transplanted heart: [place] heart Associated angina: with unstable angina Qualified Code(s): I25.110 - Atherosclerotic heart disease of [place] coronary artery with unstable angina pectoris (5) Myocardial infarction Priority: Secondary Status: Acute Qualifiers: Myocardial infarction type: unspecified Involved coronary artery: unspecified coronary artery Qualified Code(s): I21.9 - Acute myocardial infarction, unspecified Hospital course: Mr. Ross is a 62 year old male past medical history of CAD status post PCI with 2 stents in 2009 hypertension hyperlipidemia presented to [facility] with complaints of chest pain has been intermittent over the months he did have chest pain that woke him from sleep resolved. The pain continued Day describing it as burning radiating to his left shoulder with associated symptoms of shortness of breath and diaphoresis. He did take 2 nitroglycerin with some relief he presented to the ER for evaluation. Troponins were negative [address]-T wave abnormalities patient was placed on heparin drip as well as nitro drip to control chest pain. He was evaluated by cardiology and he underwent LHC which showed nonobstructive CAD with patent stents. Cardiology did decrease beta reinaldo due to complaints of fatigue and added Imdur. Recommending outpatient sleep study to evaluate for JOSE-advised patient to follow-up with primary care provider as well as cardiology as outpatient. Right femoral site without any bleeding or hematoma He is hemodynamically stable at this time is ready for discharge. - Time Spent with Patient Total time spent providing and/or coordinating discharge services: - Discharge Medications Prescriptions: New Isosorbide MONOnitrate (24 HR) [Imdur] 30 mg PO DAILY #30 tab.er.24h Metoprolol [Lopressor] 25 mg PO BID 30 Days #60 tablet Continued Fluticasone Propionate Nasal [Flonase] 2 spray IN DAILY PRN PRN Reason: Allergy Symptoms Simvastatin [Zocor] 40 mg PO HS Aspirin 325 mg PO DAILY Quinapril HCl [Accupril] 5 mg PO DAILY Budesonide/Formoterol 160/4.5 [Symbicort 160/4.5] 1 puff IH BID Discontinued Metoprolol [Lopressor] 50 mg PO BID Home Medications: Aspirin 325 mg PO DAILY 10/18/18 [History] Budesonide/Formoterol 160/4.5 [Symbicort 160/4.5] 1 puff IH BID 10/18/18 [History] Fluticasone Propionate Nasal [Flonase] 2 spray IN DAILY PRN 10/18/18 [History] Quinapril HCl [Accupril] 5 mg PO DAILY 10/18/18 [History] Simvastatin [Zocor] 40 mg PO HS 10/18/18 [History] Isosorbide MONOnitrate (24 HR) [Imdur] 30 mg PO DAILY #30 tab.er.24h 10/20/18 [Rx] Metoprolol [Lopressor] 25 mg PO BID 30 Days #60 tablet 10/20/18 [Rx] Allergies/Adverse Reactions: Allergy/AdvReac Type Severity Reaction Status Date / Time No Known Allergies Allergy Verified 10/18/18 21:02 Date of admission: 10/18/18 22:42 Primary care physician: Ronny Boyer Consults: 10/19/18 08:24 Consult to Cardiology [CONS] Routine Comment: Consulting Provider: Cardiology Kassi Reason for Consult: cp-unstable angina Time Notified: 08:25 Call Completed: Yes Discharging clinician: Araceli Mccallum Anticipated date of discharge: 10/20/18 - Constitutional Vitals: Temp Pulse Resp BP Pulse Ox 97.7 F 64 16 121/74 96 10/20/18 10:37 10/20/18 10:37 10/20/18 10:37 10/20/18 10:37 10/20/18 10:37 General appearance: Present: A&O X 3 Exam: zSkin: Free of rash and discoloration. Eyes: Sclera is white. There is no discharge from eyes. ENMT: Oral/pharyngeal mucosa is normal in appearance. There is no discharge from nose or ears. Respiratory: Normal breath sounds with no crackles and wheezes bilaterally. CV: Heart is regular with no gallop or murmur. GI: Abdomen is flat and soft with no palpable mass or visceromegaly. : There is no tenderness in patient's flanks bilaterally. Neuro exam: He has good strength in upper and lower extremities. He has normal eye movements. Psychiatric: He has normal affect. His thought process is appropriate to the situation. - Patient Status Disposition: Home, Self-Care Condition: Good Functional capacity at discharge: independent ambulation Overall status at discharge: patient is back to baseline - Discharge Instructions Follow Up With: Ronny Boyer DO [Primary Care Provider] - - Diet and Activity Activity: increase activity as tolerated Diet: advance to your usual diet
[2018-10-20] MEDS ORDERED: Isosorbide MONOnitrate (24 HR) 30 MG TAB.ER.24H PO SCH (12:00)
[2018-10-20 13:20] VITALS: BP 118/69
== END 2018-10-20 14:46 | disposition home or self-care (01) ==
LOC: EMEROOARM 20:21 → 3BNU 20:21
PROVIDERS: ADMIT Internal Medicine Nephrology; ATTEND Internal Medicine Nephrology